=== PATIENT | female | born 1955 | race Caucasian/White ===

== ENCOUNTER 2020-06-18 12:39 | Inpatient (IN) | payer BC, MEDICAID ==
[~2020-06-18] VITALS: Ht 160 cm; Wt 54.5 kg
[~2020-06-18 12:39] MED LIST: ASPI-611 PO; FISH OIL 1,3601 EACH PO; LISI1TAB32 PO; NITR0.4T51 SL; PENICILLIN PO; collagen PO; vitamin D3 PO; vitamin b12
[2020-06-18] MEDS ORDERED: morphine 4 MG/ML inj SYRINge IV PRN (13:00)
[2020-06-18] MEDS ORDERED: ondansetron/PF 4mg/2ml inj IV ONE (13:00)
[2020-06-18] MEDS ORDERED: normal saline 1000ML IV soln IVB ONE (13:00)
[2020-06-18 13:19] LABS: BASOPHILS % (AUTO) 0.5 % (0-1); EOSINOPHILS # (AUTO) 0.1 X10'3 (0-0.9); EOSINOPHILS % (AUTO) 1.7 % (0-6); HEMATOCRIT 35.8 % (35.0-45.0); HEMOGLOBIN 11.9 g/dl (12.0-16.0); LYMPHOCYTES # (AUTO) 1.8 X10'3 (1.1-4.8); LYMPHOCYTES % (AUTO) 21.3 % (21-51); MEAN CORPUSCULAR HEMOGLOBIN 27.5 PG (27.0-31.0); MEAN CORPUSCULAR HGB CONC 33.2 g/dL (33.0-36.5); MEAN PLATELET VOLUME 9.3 FL (7.4-10.4); MONOCYTES # (AUTO) 0.8 X10'3 (0-0.9); MONOCYTES % (AUTO) 8.8 % (2-12); NEUTROPHILS # (AUTO) 5.9 X10'3 (1.8-7.7); NEUTROPHILS % (AUTO) 67.7 % (42-75); PLATELET COUNT 219 X10'3 (140-440); RED BLOOD COUNT 4.31 X10'6 (4.20-5.60); RED CELL DISTRIBUTION WIDTH 13.3 % (11.5-14.5); WHITE BLOOD COUNT 8.7 X10'3 (4.5-11.0)
[2020-06-18 13:31] LABS: ALANINE AMINOTRANSFERASE 29 U/L (12-78); ALBUMIN 3.6 G/DL (3.4-5.0); ALBUMIN/GLOBULIN RATIO 1.2 (1.1-1.5); ALKALINE PHOSPHATASE 91 IU/L (46-116); ANION GAP 6 (8-16); ASPARTATE AMINO TRANSFERASE 22 U/L (10-37); BILIRUBIN,TOTAL 0.3 MG/DL (0.1-1.0); BLOOD UREA NITROGEN 11 MG/DL (7-18); BUN/CREATININE RATIO 14.1 (6.6-38.0); CALCIUM 8.6 MG/DL (8.5-10.1); CHLORIDE 107 MMOL/L (99-107); CREATININE 0.78 MG/DL (0.40-0.90); GLUCOSE 120 MG/DL (70-104); POTASSIUM 3.5 MMOL/L (3.5-5.1); SODIUM 143 MMOL/L (135-145); TOTAL CARBON DIOXIDE 29.9 MMOL/L (24-32); TOTAL PROTEIN 6.7 G/DL (6.4-8.2); eGFR 75 ML/MIN
[2020-06-18] MEDS ORDERED: CHOL500050 PO (14:25)
[2020-06-18] MEDS ORDERED: LISI10TA PO (14:27)
[2020-06-18] MEDS ORDERED: METO-539 PO (14:27)
[2020-06-18] MEDS ORDERED: ATOR20TA66 PO (14:27)
[2020-06-18] MEDS ORDERED: GARL1TAB2 PO (14:29)
[2020-06-18] MEDS ORDERED: ZINC220C11 PO (14:29)
[2020-06-18] MEDS ORDERED: ASCO-134 PO (14:29)
[2020-06-18] MEDS ORDERED: acetaminophen 325mg tablet PO PRN (14:30)
[2020-06-18] MEDS ORDERED: potassium CL 10mEq/100ml bag 100 ML IV PRN ×2 (14:30)
[2020-06-18] MEDS ORDERED: magnesium Cl slow-release 64mg tablet PO PRN (14:30)
[2020-06-18] MEDS ORDERED: ondansetron/PF 4mg/2ml inj IV PRN (14:30)
[2020-06-18] MEDS ORDERED: magnesium 2GM in 50ml NS 50 ML IV PRN (14:30)
[2020-06-18] MEDS ORDERED: potassium Cl 20 mEq SR tablet PO PRN ×2 (14:30)
[2020-06-18] MEDS ORDERED: magnesium 4gm in 100ml NS 100 ML IV PRN (14:30)
--- NOTE | 2020-06-18 16:47 | NUR ---
Patient in room ED 3. I have received report from Yanni REYNA and had the opportunity to ask questions and assume patient care.
--- NOTE | 2020-06-18 17:25 | NUR ---
Patient arrived to the unit accompanied by ED personnel. Vital signs obtained, cardiac monitor technician removed, belongings stored away, 2 RN skin check complete, patient oriented to room and call light. Will continue to monitor
[2020-06-18 18:00] VITALS: BP 148/93
--- NOTE | 2020-06-18 18:00 | NUR ---
Patient in room PCU 3024. I have received report from Jacey REYNA and had the opportunity to ask questions and assume patient care.
[2020-06-18] MEDS ORDERED: nitroGLYCERIN 0.4mg SUBLingual tab SL PRN (18:05)
--- NOTE | 2020-06-18 18:18 | NUR ---
Problems reprioritized. Patient report given, questions answered & plan of care reviewed with Donald RN and Mnoika REYNA.
[2020-06-18] MEDS: K and/or MAG REPLACEMENT MC SCH (19:07)
[2020-06-18] MEDS: zinc sulfate 220mg capsule PO SCH (20:28)
[2020-06-18] MEDS: atorvastatin 20mg tablet PO SCH (20:28)
[2020-06-18] MEDS: docusate sod 100mg capsule PO SCH (20:29)
[2020-06-18] MEDS: lisinopril 10 MG tablet PO SCH (20:29)
[2020-06-18] MEDS: metoprolol succinate 25mg (24-HOUR) SR. Tablet PO SCH (20:29)
[2020-06-18] MEDS ORDERED: temazepam 15mg capsule PO PRN (21:00)
[2020-06-18 22:00] VITALS: BP 157/59
[2020-06-19] VITALS (10 sets, daily range): BP systolic 127–159; BP diastolic 56–73
[2020-06-19 01:34] LABS: BASOPHILS % (AUTO) 0.3 % (0-1); EOSINOPHILS # (AUTO) 0.2 X10'3 (0-0.9); EOSINOPHILS % (AUTO) 2.3 % (0-6); HEMATOCRIT 36.1 % (35.0-45.0); HEMOGLOBIN 11.9 g/dl (12.0-16.0); LYMPHOCYTES # (AUTO) 2.3 X10'3 (1.1-4.8); LYMPHOCYTES % (AUTO) 28.7 % (21-51); MEAN CORPUSCULAR HEMOGLOBIN 27.7 PG (27.0-31.0); MEAN PLATELET VOLUME 9.3 FL (7.4-10.4); MONOCYTES # (AUTO) 0.9 X10'3 (0-0.9); MONOCYTES % (AUTO) 11.2 % (2-12); NEUTROPHILS # (AUTO) 4.7 X10'3 (1.8-7.7); NEUTROPHILS % (AUTO) 57.5 % (42-75); PLATELET COUNT 211 X10'3 (140-440); RED CELL DISTRIBUTION WIDTH 13.4 % (11.5-14.5); WHITE BLOOD COUNT 8.2 X10'3 (4.5-11.0)
[2020-06-19 01:45] LABS: ALBUMIN 3.4 G/DL (3.4-5.0); ANION GAP 7 (8-16); BLOOD UREA NITROGEN 12 MG/DL (7-18); BUN/CREATININE RATIO 15.2 (6.6-38.0); CALCIUM 8.6 MG/DL (8.5-10.1); CHLORIDE 106 MMOL/L (99-107); CREATININE 0.79 MG/DL (0.40-0.90); GLUCOSE 103 MG/DL (70-104); MAGNESIUM 1.7 MG/DL (1.5-2.4); POTASSIUM 3.7 MMOL/L (3.5-5.1); SODIUM 142 MMOL/L (135-145); TOTAL CARBON DIOXIDE 29.5 MMOL/L (24-32); eGFR 74 ML/MIN
--- NOTE | 2020-06-19 06:28 | NUR ---
Patient in room PCU 3024. I have received report from Donald REYNA and Monika ERYNA and had the opportunity to ask questions and assume patient care.
--- NOTE | 2020-06-19 06:30 | NUR ---
Problems reprioritized. Patient report given, questions answered & plan of care reviewed with Haroldo REYNA.
--- NOTE | 2020-06-19 06:30 | NUR ---
[place] documentation: I have reviewed and agree with all interventions, assessments performed and documented by Christianne REYNA.
[2020-06-19] MEDS ORDERED: pantoprazole 40mg Tablet.DR PO SCH (07:30)
[2020-06-19] MEDS ORDERED: OMEGA-3/DHA/EPA/FISH OIL 1 EACH CAPSULE.DR PO SCH (08:00)
[2020-06-19] MEDS ORDERED: aspirin 81mg tablet.DR PO SCH (08:00)
[2020-06-19] MEDS ORDERED: ascorbic acid 500mg tablet PO SCH (08:00)
[2020-06-19] MEDS: metoprolol succinate 25mg (24-HOUR) SR. Tablet PO SCH (08:00)
[2020-06-19] MEDS ORDERED: vitamin D (cholecalciferol) 1,000 unit tablet PO SCH (08:00)
[2020-06-19] MEDS: atorvastatin 20mg tablet PO SCH (08:00)
[2020-06-19] MEDS: K and/or MAG REPLACEMENT MC SCH (08:00)
[2020-06-19] MEDS: docusate sod 100mg capsule PO SCH (08:00)
[2020-06-19] MEDS: lisinopril 10 MG tablet PO SCH (08:00)
[2020-06-19] MEDS: zinc sulfate 220mg capsule PO SCH (08:00)
[2020-06-19] MEDS ORDERED: GARLIC PO SCH (08:00)
--- NOTE | 2020-06-19 09:08 | NUR ---
Page sent to Dr. Lezama: PAGER ID: [phone] MESSAGE: [id number] Leslie Piedra: Wondering what the plan is for this patient? Елена? She has been NPO since midnight. No chest pain currently, vitals stable. Please advise. Thank you, Jacey [phone]
[2020-06-19] MEDS ORDERED: nitroGLYCERIN 0.4mg SUBLingual tab SL PRN (09:15)
[2020-06-19] MEDS ORDERED: metoprolol tartrate 1mg/ml inj IV PRN (09:15)
[2020-06-19] MEDS ORDERED: regadenoson 0.4mg/5ml syringe IV PRN (09:15)
[2020-06-19] MEDS ORDERED: aminophylline 250mg/10ml inj. IV PRN (09:15)
[2020-06-19] MEDS ORDERED: PANT40SU2 PO (17:10)
--- NOTE | 2020-06-19 18:10 | NUR ---
Spoke to Dr. Kamara on the phone to relay negative CT chest and [place] results. He stated the dishcarge was left to the hospitalist, Dr. Lezama agrees to discharge.
--- NOTE | 2020-06-19 18:39 | NUR ---
Problems reprioritized. Patient report given, questions answered & plan of care reviewed with Brooke RN.
--- NOTE | 2020-06-19 19:51 | NUR ---
Pt discharged per PMD, pt went via private car.
--- NOTE | 2020-06-20 18:38 | NUR ---
Patient called to see if she received the FLU shot.
== END 2020-06-19 19:00 | disposition home or self-care (01) | DRG 313 ==
LOC: ER 12:39 → ED HOLD 14:27 → PCU 3S 17:13
PROVIDERS: ADMIT Internal Medicine; ATTEND Internal Medicine
PROC: 4A02XM4 Measurement of Cardiac Total Activity, External Approach (ICD-10-PCS; principal; 2020-06-19)
PROC: 3E033HZ Introduction of Radioactive Substance into Peripheral Vein, Percutaneous Approach (ICD-10-PCS; 2020-06-19)
DX: R07.89 Other chest pain (principal); E78.00 Pure hypercholesterolemia, unspecified; E78.5 Hyperlipidemia, unspecified; I25.10 Atherosclerotic heart disease of native coronary artery without angina pectoris; R94.39 Abnormal result of other cardiovascular function study; J44.9 Chronic obstructive pulmonary disease, unspecified; I50.9 Heart failure, unspecified; I11.0 Hypertensive heart disease with heart failure; I44.7 Left bundle-branch block, unspecified; Z87.891 Personal history of nicotine dependence
CPT/HCPCS: 36415; 71045; 71250; 78452; 80048; 80053; 83735; 83880; 84484; 85025; 87081; 93005; 93017; 99285; A9500; G0378; J2270; J2785; J7030